=== PATIENT | male | born 1950 | race Caucasian/White ===

== ENCOUNTER 2017-06-18 14:11 | Inpatient (IN) | payer OTHER, MEDICAID ==
[~2017-06-18] VITALS: Ht 167.6 cm; Wt 56.7 kg
[~2017-06-18 14:11] MED LIST: HYDR1TAB4 PO; PROT40 PO
[2017-06-18] MEDS ORDERED: IPRATROPIUM BROMIDE (0.02%) 0.5MG/2.5ML NEB HHN STA (14:36)
[2017-06-18] MEDS ORDERED: METHYLPREDNISOLONE SOD SUCC 125 MG/2 ML VIAL IV STA (14:36)
[2017-06-18] MEDS ORDERED: ALBUTEROL (0.083%) 2.5MG/3ML NEB HHN STA ×2 (14:36→17:10)
[2017-06-18 15:27] LABS: BASOPHILS % 0.6 % (0.0-2.0); EOSINOPHILS % 8.2 % (0.0-5.0); HEMATOCRIT. 32.1 % (42.0-52.0); HEMOGLOBIN. 10.1 g/dL (14.0-18.0); LYMPHOCYTES % 25.5 % (20.0-50.0); MEAN CORPUSCULAR HEMOGLOBIN 21.8 pg (28.0-32.0); MEAN CORPUSCULAR VOLUME 69.3 fL (80.0-94.0); MEAN PLATELET VOLUME 7.4 fl (7.4-10.4); MONOCYTES % 13.8 % (2.0-8.0); NEUTROPHILS % 51.9 % (40.0-76.0); PLATELET 204 x1000/uL (130-400); RED BLOOD CELL COUNT 4.64 mill/uL (4.7-6.1); RED CELL DISTRIBUTION WIDTH 23.3 % (11.6-14.6)
[2017-06-18 15:38] LABS: CARBON DIOXIDE 27 mEq/L (21-32); CHLORIDE 108 mEq/L (98-107); D-DIMER 0.19 mg/L FEU (<0.50); INR 1.2; PROTHROMBIN TIME 12.1 sec (9.4-11.6)
[2017-06-18 15:43] LABS: TROPONIN I < 0.02 ng/mL (0.00-0.04)
[2017-06-18 16:40] LABS: PLATELET ESTIMATE NORMAL
[2017-06-18 21:00] VITALS: BP 110/57
[2017-06-18 23:00] VITALS: BP 130/77
[2017-06-18] MEDS ORDERED: DOCUSATE SODIUM 100MG CAPSULE PO PRN (23:15)
[2017-06-18] MEDS ORDERED: CLONIDINE 0.1MG TABLET PO PRN (23:15)
[2017-06-18] MEDS ORDERED: GUAIFENESIN 200MG/10ML SUGAR FREE UDC PO PRN (23:15)
[2017-06-18] MEDS ORDERED: MAGNESIUM/ALUMINUM HYDROXIDE/SIMETHICONE 30ML UDC PO PRN (23:15)
[2017-06-18] MEDS ORDERED: MORPHINE SULFATE 4 MG/ML CPJ (NOT FOR IM USE) IV PRN (23:15)
[2017-06-18] MEDS ORDERED: IPRATROPIUM/ALBUTEROL 0.5-3(2.5)MG/3ML NEB INH PRN (23:15)
[2017-06-18] MEDS ORDERED: DIPHENHYDRAMINE 50MG/ML VIAL IV PRN (23:15)
[2017-06-18] MEDS ORDERED: LORAZEPAM 2MG/ML CPJ IV PRN (23:15)
[2017-06-18] MEDS ORDERED: ACETAMINOPHEN 325MG TABLET PO PRN (23:15)
[2017-06-18] MEDS ORDERED: HYDROCODONE/ACETAMINOPHEN 5/325MG TABLET PO PRN (23:15)
[2017-06-19] VITALS: BP 99/58
[2017-06-19] MEDS: IPRATROPIUM/ALBUTEROL 0.5-3(2.5)MG/3ML NEB INH SCH ×3 (00:35→13:49)
[2017-06-19] MEDS: METHYLPREDNISOLONE SOD SUCC 125 MG/2 ML VIAL IV SCH ×3 (00:48→12:03)
[2017-06-19] MEDS ORDERED: LEVOFLOXACIN 500MG PREMIX 100 ML IV SCH (01:00)
[2017-06-19 04:00] VITALS: BP 103/54
[2017-06-19 07:30] LABS: BASOPHILS % 0.3 % (0.0-2.0); HEMATOCRIT. 30.1 % (42.0-52.0); HEMOGLOBIN. 9.4 g/dL (14.0-18.0); LYMPHOCYTES % 8.9 % (20.0-50.0); MEAN CORPUSCULAR HEMOGLOBIN 21.6 pg (28.0-32.0); MEAN CORPUSCULAR VOLUME 68.9 fL (80.0-94.0); MEAN PLATELET VOLUME 9.1 fl (7.4-10.4); MONOCYTES % 9.2 % (2.0-8.0); NEUTROPHILS % 81.6 % (40.0-76.0); PLATELET 190 x1000/uL (130-400); RED BLOOD CELL COUNT 4.36 mill/uL (4.7-6.1); RED CELL DISTRIBUTION WIDTH 22.8 % (11.6-14.6)
[2017-06-19 08:00] VITALS: BP 104/56
[2017-06-19 08:23] LABS: CARBON DIOXIDE 27 mEq/L (21-32); CHLORIDE 106 mEq/L (98-107)
[2017-06-19] MEDS ORDERED: ENOXAPARIN 40MG/0.4ML SYR SUBCUT SCH (09:00)
[2017-06-19] MEDS ORDERED: ASPIRIN 81MG EC TABLET PO SCH (09:00)
[2017-06-19 12:00] VITALS: BP 118/64
[2017-06-19] MEDS ORDERED: INFLUENZA VIRUS VACCINE 0.5ML SYR IM ONE (12:00)
[2017-06-19 13:34] VITALS: BP 118/64
[2017-06-19 16:00] VITALS: BP 105/56
== END 2017-06-19 16:30 | disposition home or self-care (01) | DRG 189 ==
LOC: ER 14:11 → EDBEDREQTM 18:39 → 6WST 18:39 → EDBEDREQ 18:39 → ENRESERV 19:30
PROVIDERS: ADMIT Internal Medicine; ATTEND Internal Medicine
DX: J96.00 Acute respiratory failure, unspecified whether with hypoxia or hypercapnia (principal); J45.901 Unspecified asthma with (acute) exacerbation; Z79.899 Other long term (current) drug therapy
CPT/HCPCS: 36415; 71010; 80053; 83880; 84484; 85025; 85379; 85610; 90686; 93005; 93970; 94640; 94644; 96374; 99285; J1650; J1956; J2270; J2930; J7050; J7611; J7620

== ENCOUNTER 2023-02-09 05:41 | Emergency (ER) | payer OTHER, MEDICAID ==
[~2023-02-09] VITALS: Ht 167.6 cm; Wt 64.0 kg
[~2023-02-09 05:41] MED LIST changes: +ACET-2708 MT; +ASPI-867 MT; +BENZ-16 MT; +FLUT1DIS3 INH; +IPRA4AER INH; +MONT-46 MT; +P20 MT
[2023-02-09] MEDS ORDERED: ACETAMINOPHEN WITH CODEINE 300/30MG TABLET PO ONE (06:00)
[2023-02-09] MEDS ORDERED: TOPUD PO (09:26)
[2023-02-09 09:49] VITALS: BP 136/88
== END 2023-02-09 09:53 | disposition home or self-care (01) ==
LOC: ER 05:51
DX: M79.10 Myalgia, unspecified site (principal); J45.909 Unspecified asthma, uncomplicated; Z79.899 Other long term (current) drug therapy
CPT/HCPCS: 71101; 73070; 99284